=== PATIENT | female | born 1995 | race Caucasian/White ===

== ENCOUNTER → 2023-03-02 14:02 | Outpatient (CLI) | payer OTHER, SELFPAY ==
--- NOTE | 2023-03-02 14:03 | DI.US.S_ITS ---
PROCEDURE: US OB >= 14 WEEKS FETUS INDICATIONS: ANATOMY SCAN OUTSIDE/PRIOR DATING DATA: Last menstrual period (LMP): 10/07/2022. LMP-based estimated date of delivery (ESTHER): 07/14/2023. The calculations are made using the clinical ESTHER of 07/14/2023. TECHNIQUE: Real-time scanning was performed of the fetus, with image documentation and biometric measurements. Endovaginal scanning: Not performed COMPARISON: None. FINDINGS: General: A single living intrauterine gestation is present. Presentation: Vertex. Placenta: Placental position is posterior , without previa. Amniotic fluid index: 14.5 cm, normal range is 5-24 cm. Single deepest vertical pocket is 4.9 cm. heart rate: 173 beats per minute. Maternal cervical canal: 4.8 cm long. Normal lower limit is 2.5 cm. biometrics: Biparietal diameter: 4.9 centimeters, 21 weeks and 0 days Head circumference: 18.3 centimeters, 20 weeks and 5 days Abdominal circumference: 15.8 centimeters, 21 weeks and 0 days Femur length: 3.5 centimeters, 20 weeks and 6 days Clinically estimated gestational age: 20 weeks and 6 days Composite gestational age from present scan: 20 weeks and 6 days Estimated weight and percentile: 386 grams, 48th percentile Anatomic survey: Neuro: Ventricles are non-dilated at less than 10 mm. Cisterna magna is normal at 3-11 mm. Cerebellum is normal in size and morphology. Nuchal skin fold: Normal at less than 6 mm between 14-21 weeks gestational age. Face: Nose and lips, facial profile are normal. Spine: No evidence for spina bifida. Heart: 4-chambered heart is present, with normal ventricular outflow tracts. Diaphragm: Diaphragm is intact. Stomach: Left-sided stomach is present. Kidneys: No hydronephrosis. Normal is less than 5 mm in 2nd trimester, less than 7 mm in 3rd trimester. Cord: 3-vessel cord has orthotopic insertion. Bladder: Normal in size. Extremities: All 4 extremities identified. IMPRESSION: 1. Single live intrauterine at 20 weeks and 6 days. 2. Normal anatomic survey. We strive to produce accurate, complete, and clear reports of imaging services. To assist us in improving patient care, this report was composed using standard report templates and voice recognition software. Therefore, it may contain abnormal punctuation, insertions and/or omissions. Occasional wrong-word or sound-alike substitutions may occur. Though we review the report and make efforts to correct it, we do recommend that the report be read carefully in proper context to recognize any text inaccuracies. Dictated by: Abimael Lu M.D. on 03/02/2023 at 16:37 Approved by: Abimael Lu M.D. on 03/02/2023 at 16:41
== END ==
PROVIDERS: Referring Provider Obstetrics & Gynecology; Visit Provider Obstetrics & Gynecology
DX: Z34.82 Encounter for supervision of other normal pregnancy, second trimester (principal); Z3A.20 20 weeks gestation of pregnancy
CPT/HCPCS: 76811

== ENCOUNTER → 2023-06-14 09:03 | Outpatient (CLI) | payer OTHER, SELFPAY ==
[2023-06-15 08:08] LABS: Strep Grp B PCR NEG for Grp B Strep
== END ==
PROVIDERS: Visit Provider Obstetrics & Gynecology
DX: Z34.83 Encounter for supervision of other normal pregnancy, third trimester (principal); Z3A.36 36 weeks gestation of pregnancy
CPT/HCPCS: 87653

== ENCOUNTER 2023-06-28 07:25 | Observation (INO) | payer OTHER, SELFPAY ==
[2023-06-28 08:37] LABS: Add Manual Diff / Slide Review NO; Basophils Absolute Auto 100 /uL (0-100); Basophils Percent Auto 0.7 % (0-2); Eosinophils Absolute Auto 100 /uL (0-450); Eosinophils Percent Auto 0.5 % (2-4); Hematocrit 34.5 % (36-46); Hemoglobin 11.9 g/dL (12.0-16.0); Lymphocytes Absolute Auto 2100 /uL (1100-4500); Lymphocytes Percent Auto 18.3 % (25-40); Mean Corpuscular HGB Conc 34.5 % (30-36); Mean Corpuscular Hemoglobin 31.3 PG (26-34); Mean Corpuscular Volume 90.7 fL (80-100); Monocytes Absolute Auto 500 /uL (0-900); Monocytes Percent Auto 4.6 % (3-14); Neutrophils Absolute Auto 8500 /uL (1500-7000); Neutrophils Percent Auto 75.9 % (50-75); Platelet Count 201 X10^3/uL (150-400); Red Cell Distribution Width 14.6 % (11.6-14.8); White Blood Cell Count 11.3 X10^3/uL (4.5-11.0)
[2023-06-28] MEDS: LACTATED RINGERS 1,000 ML 100 ML IV (10:24)
[2023-06-28] MEDS: OXYTOCIN PREMIX 30 UNIT/500 ML PLAST..BAG IV (10:25)
== END 2023-06-28 13:05 | disposition home or self-care (01) ==
PROVIDERS: Admitting Provider Obstetrics & Gynecology; Referring Provider Obstetrics & Gynecology; Visit Provider Obstetrics & Gynecology
DX: O13.3 Gestational [pregnancy-induced] hypertension without significant proteinuria, third trimester (principal); Z3A.37 37 weeks gestation of pregnancy
CPT/HCPCS: 36415; 59025; 59050; 85025; 86850; 86900; 86901; 96360; G0378; G0379; J2590

== ENCOUNTER 2023-06-29 10:54 | Inpatient (IN) | payer OTHER, SELFPAY ==
[2023-06-29 11:46] VITALS: BP 105/72
[2023-06-29] MEDS: OXYTOCIN PREMIX 30 UNIT/500 ML PLAST..BAG IV (14:06)
--- NOTE | 2023-06-29 18:00 | PM.OBHP.IH.1 ---
OB HPI Date/Time Date of admission: 06/29/23 Date Patient Seen: 06/29/23 Time Patient Seen: 12:45 History of Present Condition Chief complaint: INDUCTION ESTHER Calculator Estimated Delivery Date Method Current WG Current Estimate 07/14/23 LMP (Certain) 37w 6d Estimated Gestational Age (weeks): 38 : 3 Para: 1 care: good care, initiated at week # (8), number of visits (10) and pounds weight gain (20) Dating criteria OB: LMP confirmed by 1st trimester US Ultrasounds: normal 1st trimester US and normal mid trimester US Obstetrical complications: gestational hypertension Medical complications OB: none Indications Indication for induction OB: gestational HTN/pre-eclampsia Preadmission Labs Last OB Lab Results: Blood Type B Positive 06/29/23 11:55 Antibody Screen Negative 06/29/23 11:55 Hematocrit 34.5 % (36-46) L 06/28/23 08:05 Hemoglobin 11.9 g/dL (12.0-16.0) L 06/28/23 08:05 Group B Streptococcus (PCR) Neg for grp b strep 06/14/23 09:03 -: Chlamydia screen: negative, Gonorrhea screen: negative and Urine: negative -: PAP smear: Normal Genetic Screens: Cell-free DNA: Normal (normal female) External Labs -: Urine: negative Prior (ies) Past Pregnancies Del. Date GA/Weeks Labor Lgth Wt Sex Route Outcome Anesthesia Place Delv Breastfeed Preg Comp Name 12/16/21 37 8 7 lb 11 oz Male vaginal live - full term [place] pumped x4 month induced hyper- other [facility] 06/27/22 4-5 spontaneous Delivery Date: 12/16/21 Last Updated by: Na Velasco RN runs of SVT Delivery Date: 06/27/22 Last Updated by: Na Velasco RN passed spontaneously, no complications Evaluation Evaluation Baseline heart rate: 150 Variability: Moderate (11-25) monitor accelerations: Present Monitor Decelerations: Absent Contraction Frequency (minutes): 4 Uterine Contraction Intensity: Mild Status: Category l Dilation (cm): 3 Effacement (%): 90 station: -1 [facility] Medical History Wears glasses PIH ( induced hypertension) Migraine (~2015) HSV-2 infection (~2019) Surgical History (Updated 02/10/23 @ 09:40 by Na Velasco, RN) [place] teeth extracted Family History (Updated 02/10/23 @ 09:44 by Na Velasco, RN) Mother Diabetes mellitus Father Diabetes mellitus Hypertension Depression Anxiety Grandfather Bladder cancer Grandmother A-fib Grandfather Stroke Heart disease Brother Bipolar disorder Social History marital status: number of children: 1 household members: spouse and children lives independently: Yes caregiver/support person: Yes housing: condominium ([facility]) pets and animals: Yes (dogs) education level: college (bachelor's degree) occupational status: employed (ED RN) current occupational exposures/hazards: Yes special nilsa needs: No travel history: recent (recent cross-country move) seatbelt use: always water heater temp set < 120 deg: Yes working smoke detector in home: Yes carbon monox detector in home: Yes firearms in home: Yes do you feel safe at home: Yes Smoking Status: Never smoker second hand exposure: No alcohol intake: former (occasionally when not ) substance use type: does not use during the past year weight has: other (son currently 14 mo old, ~20 lb over pre-baby wt at beginning of this ) well-balanced diet: daily or most days daily servings fruits/ve or more times/day caffeine: Yes (1 cup coffee or soft drink/day) Type(s) of exercise: walking frequency: 1-2 times per week Meds Home Medications and Allergies Home Medications Medication Instructions Recorded Confirmed Type doxylamine succinate 25 mg tablet 25 mg PO BID PRN Nausea 02/10/23 06/28/23 History (Unisom (doxylamine)) vitamin-ferrous sulfate tab PO DAILY 02/10/23 06/21/23 History 27 mg iron-folic acid 0.8 mg tablet pyridoxine (vitamin B6) 25 mg 25 mg PO BID PRN Nausea 02/10/23 06/28/23 History tablet (Vitamin B-6) blood sugar diagnostic (Blood #100 ea 02/15/23 06/28/23 Rx Glucose Test strips) blood-glucose meter (Blood Glucose #1 ea 02/15/23 06/28/23 Rx Monitoring kit) valacyclovir 500 mg tablet 500 mg PO BID #60 tabs 05/30/23 06/28/23 Rx (Valtrex) breast pump #1 ea 06/22/23 06/28/23 Rx Allergies Allergy/AdvReac Type Severity Reaction Status Date / Time No Known Drug Allergies Allergy Verified 06/29/23 11:49 OB Exam Vital signs Blood Pressure: 146/90 Narrative Exam Narrative: Generally: Patient tolerating contractions, no acute distress Lungs: Clear to auscultation bilaterally Cardiovascular: Regular rate and rhythm Fundal height: 39 cm Estimated weight: 8 lb Extremities: 1+ edema, 1+ DTRs, negative clonus Objective Labs Labs: Laboratory Results - last 24 hr 06/29/23 11:55 Blood Type B Positive Antibody Screen Negative Assessment and Plan Assessment and Plan Assessment and Plan narrative: Assessment: 28-year-old 3 para 1 at estimated gestational age of 38 weeks Gestational hypertension Plan: Artificial rupture of membranes with copious clear amniotic fluid Pitocin per protocol 2 Epidural as necessary Expected management to spontaneous vaginal delivery Time Spent with Patient Total time spent with greater than 50% in coordination of care (as documented) at patient's floor/unit and/or counseling patient:: 15-24 minutes
--- NOTE | 2023-06-29 18:00 | PM.OBPNLAB ---
Date/Time Date Patient Seen: 06/29/23 Time Patient Seen: 18:00 Pain Control Pain control: tolerating well Comments: Patient in the tub Pelvic Exam Amniotic membrane status: Ruptured Contractions Contractions on admission: regular Monitor mode: External Pitocin rate (mU/min): 12 Contraction frequency (min): 3 Contraction duration (min): 1 Contraction pattern: Regular Contraction intensity: Strong/Firm Status status: Category l Heart Rate Baseline: 145 Monitor Accelerations: Present Monitor Decelerations: Variable (mild) Monitor Variability: Moderate Assessment and Plan Assessment: induction ongoing Plan: continuous present management Comments: Expected management to spontaneous vaginal delivery Epidural as necessary
[2023-06-29] MEDS: LACTATED RINGERS 1,000 ML 100 ML IV (18:39)
[2023-06-29] MEDS: LIDOCAINE 1% 20 ML INJ (19:25)
[2023-06-29] MEDS: TRANEXAMIC ACID 1,000 MG in SODIUM CHLORIDE 0.9% 100 ML 200 MG IV (19:36)
[2023-06-29] MEDS: miSOPROStoL 200 MCG TABLET 800 MCG PR (19:42)
[2023-06-29 20:03] VITALS: BP 146/90
--- NOTE | 2023-06-29 20:04 | PM.OBPRVD ---
Events: Induced HTN and Labor Induction Labor & Delivery Delivery date: 06/29/23 Intrapartal Events: Extended Tachycardia Cervical ripening method: none Induction method: AROM Delivery augmentation: pitocin Delivery monitor: external FHT and external uterine Route of delivery: Episiotomy description: None L&D Laceration Description: Perineal - 2nd Degree and Vaginal - 2nd Degree Delivery repair: vicryl and chromic Quantitative Blood Loss: 500 Anesthesia Type: Local (for repair only) Complications: None Narrative: Patient complete and pushed with 2 contractions. At 7:19 p.m., a live female delivered spontaneously over an intact perineum. A tight nuchal cord x1 was cut on the perineum. The remainder of the body delivered without difficulty and was placed on mom's abdomen. Pitocin was given in the IV fluids. Cord bloods were obtained. The placenta delivered intact with a three-vessel cord at 7:23 p.m.. The fundus was massaged. There was initially some large clots. Perineum and vagina were inspected and there was a second-degree laceration which was repaired in the usual fashion after 10 cc of 1% lidocaine were injected. Hemostasis was achieved. The fundus was again massaged and there were some large clot. 800 mcg of misoprostol were placed rectally. 1000 mg of TXA were given IV. Apgars 7 at 1 minute and 9 at 5 minutes. QBL 500 cc. Lap count, 10, correct x 2. 4 x 4 count, 10, correct x2. Instrument count correct x2. . Local analgesia for repair only. Mom and infant stable to recovery. Baby 1: Infant gender: Female Presentation: vertex Position: Right Occiput Anterior Placenta delivery description: Spontaneous Cord Vessel Description: 3 Vessels, Nuchal Cord (x1), Tight and Clamped/Cut (On the perineum) score (1 min): 7 score (5 min): 9 weight: 7 lb 3.6 oz Plan for aftercare: Routine care
[2023-06-29] MEDS: IBUPROFEN 600 MG TABLET PO (20:57)
[2023-06-29] MEDS: ACETAMINOPHEN 325 MG TABLET 650 MG PO (20:57)
[2023-06-30] MEDS: IBUPROFEN 600 MG TABLET PO ×2 (05:05→11:19)
[2023-06-30] MEDS: ACETAMINOPHEN 325 MG TABLET 650 MG PO ×2 (05:05→11:19)
[2023-06-30 05:30] LABS: Hematocrit 26.5 % (36-46); Hemoglobin 9.1 g/dL (12.0-16.0)
[2023-06-30] MEDS: DOCUSATE 100 MG CAPSULE PO (08:44)
[2023-06-30] MEDS: PRENATAL VIT,CALC/IRON/FOLIC 1 TABLET 1 TAB PO (08:44)
[2023-06-30 13:04] VITALS: BP 122/59; PULSE 74; RESP 16; TEMP 36.7
[2023-06-30 13:07] VITALS: BP 122/59; PULSE 74; RESP 16; TEMP 36.7
--- NOTE | 2023-07-02 14:06 | PM.OBDS.1 ---
Discharge Providers Provider Date of admission: 06/29/23 10:54 Discharge Date: 06/30/23 Primary care physician: Steven BAI Provider Consults: 06/29/23 11:51 Consult to Anesthesiology Urgent Comment: Consulting Provider: Bhakti Downing Reason for consultation: Epidural Discharge provider: Juliana Louis MD Summary Hospital Course Date Patient Seen: 06/30/23 Diagnoses: 38+2 weeks gestation Gestational hypertension Induction of labor with Pitocin Artificial rupture of membranes Spontaneous vaginal delivery Hospital Course: Patient is a 28-year-old 3 para 1 who presented on June 29, 2023 for a scheduled induction of labor due to gestational hypertension. She was 3 cm/90%/-1 station. Artificial rupture membranes was performed. She was started on Pitocin. At 6:00 p.m., she was in the bath tub and was tolerating contractions well. She progressed rapidly to complete dilation and had a spontaneous vaginal delivery that evening. Her course was unremarkable and she was discharged home on day #1. Peripartum Data Delivery Method: Natural Vaginal Laceration Description: Perineal - 2nd Degree and Vaginal - 2nd Degree Episiotomy description: None Procedures: Artificial rupture of membranes Pitocin induction of labor Spontaneous vaginal delivery Second-degree vaginal/perineal laceration repair complications: none 1: Gender: Female Disposition of : home Status at Discharge Cognitive/behavioral status at discharge: oriented Functional status at discharge: independent ambulation Overall status at discharge: patient is progressing back to baseline Time Spent with Patient Time attestation: Total time spent providing and/or coordinating discharge services: Time spent: Less than 30 minutes Objective Labs 06/30/23 05:22 Exam Narrative Exam Narrative: Generally: Patient is sitting up in bed, holding , no acute distress Fundus: Firm at U -1 Extremities: Trace edema, negative Homans Discharge Plan Discharge Plan Patient Disposition: Home Provider Discharge Comment: Call with fever, chills, or bleeding vaginally more than a pad in an hour Continue vitamins, and iron Ibuprofen 600 mg every 6 hours as needed for cramping Tylenol 650 mg every 6 hours as needed for pain Discharge orders & Medications Prescriptions: Continued vit-ferrous sulfat-FA 27 mg iron- 0.8 mg tablet PO DAILY Discontinued pyridoxine (vitamin B6) [Vitamin B-6] 25 mg tablet 25 mg PO BID PRN (Reason: Nausea) Patient Comments: Taken with unisom PRN for nausea Unisom (doxylamine) 25 mg tablet 25 mg PO BID PRN (Reason: Nausea) Patient Comments: PRN for nausea valacyclovir [Valtrex] 500 mg tablet 500 mg PO BID Qty: 60 2RF No Action (DME) blood-glucose meter [Blood Glucose Monitoring] Kit See Rx Instructions .Route Qty: 1 0RF Rx Instructions: As directed (DME) breast pump [Kaylynn Duo Breast Pump] Device See Rx Instructions .ROUTE .MEDSUPPLY Rx Instructions: As directed Follow up/Referrals: Juliana Louis MD [Physician] - (Appointment with on July at 8:30 AM for check.Appointment with on at 11:00 am) Diet/Activity/Treatments Diet: Regular Activity: Nothing in the vagina and till 6 week visit Skin/Wound/Dressing Care Report to your healthcare provider any signs of infection, such as:: chills, fever, increased pain and unusual drainage Visit Report/Discharge Packet Instructions: DI for Labor and Delivery, Vaginal Stand Alone Forms: Patient Portal/API, Stroke Signs & Symptoms Discharge Data Primary Care Provider: Steven Parr
== END 2023-06-30 15:58 | disposition home or self-care (01) | DRG 807 ==
PROVIDERS: Admitting Provider Obstetrics & Gynecology; Referring Provider Obstetrics & Gynecology; Visit Provider Obstetrics & Gynecology
DX: O13.4 Gestational [pregnancy-induced] hypertension without significant proteinuria, complicating childbirth (principal); Z37.0 Single live birth; Z3A.38 38 weeks gestation of pregnancy; O76 Abnormality in fetal heart rate and rhythm complicating labor and delivery; O70.1 Second degree perineal laceration during delivery
CPT/HCPCS: 36415; 59050; 59200; 59400; 85014; 85018; 86850; 86900; 86901; G0379; J1885; J2590; S0191